=== PATIENT | female | born 1940 | race Hispanic/Latino ===

== ENCOUNTER 2018-09-12 06:26 | Emergency (ER) | payer MEDICARE, OTHER ==
[~2018-09-12] VITALS: Ht 154.9 cm; Wt 97.5 kg
[~2018-09-12 06:26] MED LIST: AMLODIPINE BESYL5 MG PO; LOSARTAN POTASS25 MG PO; METFORMIN HCL500 M2 PO; OMEPRAZOLE40 MG PO
--- OUTSIDE RECORDS SUMMARY | 2018-09-12 06:29 | XMS REPORT ---
Author Author [facility] Address Unknown Phone Unavailable Care Team Providers Care Radiological Technician Name Role Phone Clarissa MICHALE Unavailable Unavailable Problems This patient has no known problems. Allergies, Adverse Reactions, Alerts This patient has no known allergies or adverse reactions. Medications This patient has no known medications. Results Test Description Test Time Test Comments Text Results Atomic Results Result Comments CT ABDOMEN/PELVIS W [id number] [place], [place] [address] Patient Name: GUSTAVO DUMONT MR #: [id number] : 1940 Age/Sex: 76/F Req #: [id number] Adm Physician: Ordered by: JORDAN TORREZ Report #: [id number] Location: ER Room/Bed: Procedure: [id number] CT/CT ABDOMEN/PELVIS W Exam Date: 01/24/17 Exam Time: 1730 REPORT STATUS: Signed PROCEDURE: CT ABDOMEN AND PELVIS WITH CONTRAST TECHNIQUE: The abdomen and pelvis were scanned utilizing a multidetector helical scanner from the diaphragm to the lesser trochanter after the IV administration of 75 cc of Isovue 370 and the oral administration of dilute Gastrografin. Coronal and sagittal multiplanar reformations were obtained. COMPARISON: None. INDICATIONS: Right lower quadrant pain since yesterday, history of diverticulitis FINDINGS: LOWER THORAX: Linear opacities in the lingula and anterior left lower lobe, likely represent subsegmental atelectasis or scarring. The lung bases are otherwise clear. HEPATOBILIARY: No focal hepatic lesions. No intrahepatic biliary ductal dilatation. The common bile duct is mildly dilated, measuring 8 mm at the clemente hepatis. Cholecystectomy clips. SPLEEN: No splenomegaly. PANCREAS: No ductal dilation. 1.1 x 0.9 x 1.3 cm fat containing lesion in the pancreatic head, likely representing a lipoma. No other focal lesions. ADRENALS: 1.0 cm hypodense nodule in the left adrenal gland (coronal image 64). Right adrenal gland is unremarkable. KIDNEYS/URETERS: No hydronephrosis, stones, or solid mass lesions. Cortical scarring in the left kidney PELVIC ORGANS/BLADDER: Bladder is unremarkable. Uterus is unremarkable. No adnexal masses. PERITONEUM / RETROPERITONEUM: No free air or fluid. LYMPH NODES: No lymphadenopathy. VESSELS: Unremarkable. GI TRACT: No bowel dilation or evidence of obstruction. No pericolonic inflammatory changes. Surgical sutures are noted in the sigmoid colon (series 2, image 64). No significant diverticulosis or diverticulitis. BONES AND SOFT TISSUES: No acute bony abnormalities. Degenerative disc changes in the lower lumbosacral spine, wors e at L4-L5. Marked diastases of the recti muscles, with the herniation of mesentery, small and large bowel, which has a normal nondilated, nonobstructive appearance. IMPRESSION: 1. No acute abdominopelvic abnormalities. Specifically, no acute abnormal findings in the right lower quadrant to explain the patient's pain. 2. Marked diastases of the recti muscles, with herniation of mesentery, small and large bowel, which has a normal nondilated, nonobstructive appearance. 3. Indeterminate 1.0 cm hypodense nodule in the left adrenal gland, likely representing a benign adenoma. 4. 1.1 cm lipoma in the pancreatic head. 5. Mild dilation of the common bile duct, likely reflecting post cholecystectomy status. Boaz Ring M.D. Dictated by: Boaz Ring M.D. on 01/24/2017 at 18:22 Electronically approved by: Boaz Ring M.D. on 01/24/2017 at 18:22 Dictated By: BOAZ RING MD 21 Transcribed By: JERI on 01/24/171821 COPY TO: JORDAN TORREZ
[2018-09-12] MEDS ORDERED: SODIUM CHLORIDE 0.9% 500ML 500 ML IV STA (06:50)
[2018-09-12] MEDS ORDERED: DIATRIZOATE MEGL/DIATRIZOA SOD 30 ML BTL PO ONE (06:59)
[2018-09-12] MEDS ORDERED: FAMOTIDINE 20 MG/2 ML VIAL IV NR (07:00)
[2018-09-12] MEDS ORDERED: ONDANSETRON HCL INJ 2MG/ML 2ML 2 MG/ML VIAL IV NR ×2 (07:00→09:30)
[2018-09-12 07:15] LABS: BASOPHILS % 0.3 % (0.0-1.0); EOSINOPHILS # (AUTO) 0.1 (0.0-0.4); EOSINOPHILS % 0.5 % (0.0-6.0); HEMATOCRIT 37.4 % (34.2-44.1); HEMOGLOBIN 12.6 g/dL (12.0-16.0); LYMPHOCYTES # (AUTO) 1.7 (1.0-3.2); MEAN CORPUSCULAR HEMOGLOBIN 29.4 pg (28-32); MEAN CORPUSCULAR HGB CONC 33.7 g/dL (31-35); MEAN CORPUSCULAR VOLUME 87.4 fL (81-99); MONOCYTES # (AUTO) 0.6 (0.2-0.8); MONOCYTES % 6.1 % (4.4-11.3); NEUTROPHILS # (AUTO) 7.4 (2.1-6.9); NEUTROPHILS % 75.7 % (38.7-80.0); PLATELET COUNT 241 x10e3/uL (140-360); RED BLOOD COUNT 4.28 x10e6/uL (3.6-5.1); RED CELL DISTRIBUTION WIDTH 13.9 % (11.7-14.4)
[2018-09-12 07:29] LABS: ALANINE AMINOTRANSFERASE 19 IU/L (0-55); ALBUMIN 3.8 g/dL (3.5-5.0); ALKALINE PHOSPHATASE 68 IU/L (40-150); AMYLASE 68 U/L (25-125); ANION GAP 13.1 mmol/L (8-16); BLOOD UREA NITROGEN 11 mg/dL (7-26); BUN/CREATININE RATIO 13 (6-25); CALCIUM 10.1 mg/dL (8.4-10.2); CARBON DIOXIDE 27 mmol/L (22-29); CHLORIDE 105 mmol/L (98-107); CREATINE KINASE 41 IU/L (29-168); CREATININE, SERUM 0.85 mg/dL (0.57-1.11); EST GLOMERULAR FILTRATION RATE > 60 ML/MIN (60-); GLUCOSE 151 mg/dL (74-118); POTASSIUM 4.1 mmol/L (3.5-5.1); SODIUM 141 mmol/L (136-145)
[2018-09-12 08:02] LABS: CLARITY,URINE SL CLOUDY (CLEAR); COLOR,URINE YELLOW (YELLOW); KETONES,URINE NEGATIVE (NEGATIVE); LEUKOCYTE ESTERASE ,URINE NEGATIVE (NEGATIVE); NITRITE,URINE NEGATIVE (NEGATIVE); PROTEIN,URINE DIPSTICK NEGATIVE (NEGATIVE); URINE UROBILINOGEN 0.2 mg/dL (0.2 - 1)
[2018-09-12 08:03] LABS: BILIRUBIN,URINE NEGATIVE (NEGATIVE)
[2018-09-12 08:07] LABS: BACTERIA,URINE RARE /HPF; EPITHELIAL CELLS,URINE RARE /LPF; RBC,URINE 0-5 /HPF (0-5); WBC,URINE (MAN) 0-5 /HPF (0-5)
[2018-09-12 08:57] LABS: INR 0.95; PARTIAL THROMBOPLASTIN TIME 26.4 seconds (23.8-35.5); PROTHROMBIN TIME 13.2 seconds (11.9-14.5)
--- NOTE | 2018-09-12 09:24 | NUR ---
PT OFFERED CULTURALINK TRANSLATION FOR PRYDEINIG AND DECLINED STATES SHE IS OK WITH DAUGHTER TRANSLATING
--- NOTE | 2018-09-12 09:25 | NUR ---
PT VOMITING X 2 NO BLOOD MD NOTIFIED
[2018-09-12] MEDS ORDERED: MORPHINE SULFATE INJ 4 MG/ML INJ 1ML IV NR (09:30)
--- NOTE | 2018-09-12 10:07 | Diagnostic Imaging Report ---
EXAM: CT ABDOMEN AND PELVIS with IV CONTRAST DATE: 09/12/2018 Time stamp on Exam: 8:59 AM INDICATION: Abdominal pain COMPARISON: None TECHNIQUE: The abdomen and pelvis were scanned using a multidetector helical scanner. Coronal and sagittal reformations were obtained. Routine protocol performed. Technique modification was utilized to maintain the lowest dose possible to the patient. IV Contrast: 100 cc of Isovue-370 Oral Contrast: Gastrografin intermixed with water Radiation Dose: Total DLP 664.83 mGy*cm Estimated effective dose: DLP x 0.015 x size factor FINDINGS: LOWER THORAX: No consolidations with minimal lingular atelectasis. LIVER: No masses with mild hepatic steatosis. BILIARY: The gallbladder is absent. Mild intrahepatic and extrahepatic ductal prominence secondary to reservoir effect. SPLEEN: No masses PANCREAS: No masses ADRENALS: There is a 1.4 cm left adrenal nodule. KIDNEYS: Symmetric perfusion. No enhancing masses. No hydronephrosis. Left renal hypodensity is too small to characterize but likely a cyst. GI TRACT: No distention, wall thickening or evidence of obstruction. VESSELS: Unremarkable PERITONEUM/RETROPERITONEUM: No free air or fluid. There is a large lower abdominal wall ventral hernia with loops of bowel present. The loops of bowel present within the hernia sac are mildly dilated with small bowel loops measuring up to 4 cm. LYMPH NODES: No lymphadenopathy REPRODUCTIVE ORGANS: Unremarkable BLADDER: Unremarkable SOFT TISSUES: Unremarkable BONES: No suspicious bone lesions with degenerative changes most pronounced at L4-L5 with endplate sclerosis and disc space narrowing. IMPRESSION: 1. Large lower abdominal wall ventral hernia with dilated loops of small bowel within it. 2. Nonspecific left adrenal nodule would require further workup for characterization. Signed by: Dr. Carlito oFreman DO on 09/12/2018 10:04 AM
[2018-09-12] MEDS ORDERED: IOPAMIDOL 370 MG/ML 200 ML INFUS..BTL INJ ONE (10:20)
[2018-09-12] MEDS ORDERED: SODIUM CHLORIDE 0.9% 50ML 50 ML ONE (10:20)
[2018-09-12 10:30] VITALS: BP 144/94
== END 2018-09-12 10:53 | disposition home or self-care (01) ==
LOC: ER 06:26
DX: R10.32 Left lower quadrant pain (principal); R10.31 Right lower quadrant pain; R11.2 Nausea with vomiting, unspecified; K43.9 Ventral hernia without obstruction or gangrene; E11.65 Type 2 diabetes mellitus with hyperglycemia; I10 Essential (primary) hypertension; E78.5 Hyperlipidemia, unspecified
CPT/HCPCS: 36415; 74177; 80053; 81001; 82150; 82550; 82553; 83605; 83880; 84484; 85025; 85610; 85730; 87086; 99284; J2270; J2405; J7040; Q9967

== ENCOUNTER 2018-09-13 01:14 | Inpatient (IN) | payer OTHER ==
[~2018-09-13] VITALS: Ht 165.1 cm; Wt 91.6 kg
[2018-09-13 01:51] LABS: BASOPHILS % 0.2 % (0.0-1.0); EOSINOPHILS % 0.1 % (0.0-6.0); HEMATOCRIT 36.7 % (34.2-44.1); HEMOGLOBIN 12.5 g/dL (12.0-16.0); LYMPHOCYTES % 20.7 % (18.0-39.1); MEAN CORPUSCULAR HEMOGLOBIN 29.2 pg (28-32); MEAN CORPUSCULAR HGB CONC 34.1 g/dL (31-35); MEAN CORPUSCULAR VOLUME 85.7 fL (81-99); MONOCYTES # (AUTO) 0.7 (0.2-0.8); MONOCYTES % 7.6 % (4.4-11.3); NEUTROPHILS # (AUTO) 6.8 (2.1-6.9); PLATELET COUNT 251 x10e3/uL (140-360); RED BLOOD COUNT 4.28 x10e6/uL (3.6-5.1)
--- NOTE | 2018-09-13 02:09 | Diagnostic Imaging Report ---
Exam: Abdominal series with PA chest. Clinical History: Abdominal pain and vomiting for 2 days Comparison: CT abdomen and pelvis 09/12/2018 performed yesterday DISCUSSION: Frontal view of the abdomen shows centrally located mildly dilated small bowel loops measuring 3.9 cm in maximum diameter, likely located in the previously visualized lower abdominal wall ventral hernia. There are no abnormal calcifications.No acute bone abnormality. Lungs are grossly clear. No consolidation or effusion. Cardiomediastinal silhouette is normal. Pulmonary vasculature is normal. No acute bony abnormalities. Stable atelectatic changes in the lingula. Lungs are otherwise clear. No consolidation or effusion. Cardiac mediastinal silhouette is unremarkable. Pulmonary vasculature is normal. No acute bony abnormalities. IMPRESSION: 1. Mildly dilated small bowel loops likely located in the previously visualized lower abdominal wall ventral hernia. The appearance is unchanged since CT performed yesterday. The staff physician below has personally reviewed this exam on the date of dictation. Signed by: Dr. Alberto Ring M.D. on 09/13/2018 2:05 AM
[2018-09-13 02:13] LABS: CLARITY,URINE CLOUDY (CLEAR); COLOR,URINE YELLOW (YELLOW); LEUKOCYTE ESTERASE ,URINE NEGATIVE (NEGATIVE); NITRITE,URINE NEGATIVE (NEGATIVE); PROTEIN,URINE DIPSTICK TRACE (NEGATIVE)
[2018-09-13 02:14] LABS: ALANINE AMINOTRANSFERASE 15 IU/L (0-55); ALBUMIN 3.6 g/dL (3.5-5.0); ALKALINE PHOSPHATASE 59 IU/L (40-150); AMYLASE 55 U/L (25-125); ANION GAP 15.8 mmol/L (8-16); BACTERIA,URINE MANY /HPF; BILIRUBIN,URINE 1+ (NEGATIVE); BLOOD UREA NITROGEN 11 mg/dL (7-26); BUN/CREATININE RATIO 13 (6-25); CALCIUM 9.6 mg/dL (8.4-10.2); CARBON DIOXIDE 23 mmol/L (22-29); CHLORIDE 103 mmol/L (98-107); CREATINE KINASE 45 IU/L (29-168); CREATININE, SERUM 0.86 mg/dL (0.57-1.11); EPITHELIAL CELLS,URINE MODERATE /LPF; EST GLOMERULAR FILTRATION RATE > 60 ML/MIN (60-); GLUCOSE 134 mg/dL (74-118); KETONES,URINE 1+ (NEGATIVE); LIPASE 12 U/L (8-78); MUCUS,URINE FEW (RARE); POTASSIUM 3.8 mmol/L (3.5-5.1); SODIUM 138 mmol/L (136-145); URINE UROBILINOGEN 1 mg/dL (0.2 - 1)
[2018-09-13] MEDS ORDERED: ONDANSETRON HCL INJ 2MG/ML 2ML 2 MG/ML VIAL IV STA (02:23)
[2018-09-13] MEDS ORDERED: BENZOCAINE/TETRACAINE/BUTAMBEN AERO SPRAY 56 GM CAN TOP ONE (02:45)
[2018-09-13] MEDS ORDERED: ONDANSETRON HCL INJ 2MG/ML 2ML 2 MG/ML VIAL IV PRN (02:45)
[2018-09-13] MEDS ORDERED: DEXTROSE 50% SYRINGE 50 ML IV PRN (02:45)
[2018-09-13] MEDS ORDERED: HYDRALAZINE HCL 20 MG/ML VIAL IV PRN (02:45)
[2018-09-13] MEDS: SODIUM CHLORIDE 0.9% 1000ML 1,000 ML IV SCH ×3 (03:30→21:42)
[2018-09-13] MEDS: PIPER-TAZ 3.375 GM 50 ML IV SCH ×4 (03:30→21:42)
--- NOTE | 2018-09-13 07:00 | NUR ---
ASSUMED CARE Addendum: 09/13/18 at 0743 by AMCCAULE ASSUMED CARE AT THIS TIME. PATIENT AWAKE AND ALERT SITTING IN BED. RESP EVEN AND UNLABORED. SKIN WARM AND DRY. NO SIGNS OF ACUTE DISTRESS NOTED AT THIS TIME. REQUESTING PAIN MEDICATION. EDUCATED PAITENT AND FAMILY ON THE CURRENT PLAN OF CARE,VERBALIZED UNDERSTANDING.
[2018-09-13] MEDS: MORPHINE SULFATE INJ 4 MG/ML INJ 1ML IV PRN ×2 (07:25→18:48)
[2018-09-13] MEDS: INSULIN REGULAR, HUMAN 100 UNIT/1 ML 3ML VIAL SQ SCH ×4 (07:39→21:00)
--- NOTE | 2018-09-13 09:00 | NUR ---
VERBAL REPORT GIVEN TO JAMSHID TOLBERT
--- NOTE | 2018-09-13 10:02 | NUR ---
DR VARGAS AT BEDSIDE FOR PATIENT EVAL
[2018-09-13] MEDS ORDERED: ACETAMINOPHEN 325 MG TAB PO PRN (12:30)
[2018-09-13] MEDS ORDERED: ACETAMINOPHEN 1000 MG/100 ML IV PRN (12:30)
--- NOTE | 2018-09-13 12:43 | NUR ---
no incarerated hernia per dr nicolas; continue routine care per md; pt on ngt to lwsx intermittant with approx 500 cc greenish dark fluid emptied in canister. pt aaox4. translated by fm which pt states she prefers for translation of northern irish to tuvaluan. pt assisted to restroom. back to room and on monitoring and sx. family with pt and in modified high fowlers for comfort. vss. ivf's running on pump 125cc/hr. no s/s infiltration noted to iv site. updated plan of care. continue to monitor pt while waiting for room assginment.
[2018-09-13 13:35] VITALS: BP 144/64
[2018-09-13 15:10] VITALS: BP 144/64
--- NOTE | 2018-09-13 15:10 | NUR ---
Received pt from ER at this time. Pt is aox4 and able to verbalize but only in hungarian. Daughter at the bedside and able to translate for her. Pt was admitted to nausea and abdominal pain. She has ngtube to right nare connected to LIWS at this time. Minimal greenish drainage noted. Pt is able to ambulate with min assist. Denies any pain at this time. Pt is NPO and on IVF NS@125ml/hr and well tolerated. Skin is intact. Pt place don alternating mattress and SCDs placed to bilateral legs.
[2018-09-13] MEDS: FAMOTIDINE 20 MG/2 ML VIAL IV SCH (18:42)
[2018-09-13 20:00] VITALS: BP 124/59
--- NOTE | 2018-09-13 22:21 | NUR ---
minimal output noted to NGT, "whoosh" test performed, NGT placement verified.
--- NOTE | 2018-09-13 22:26 | Consultation ---
DATE OF CONSULTATION: 09/13/2018 CHIEF COMPLAINT: Abdominal pain and vomiting. HISTORY: The patient is a 78-year-old female with 3-day history of lower abdominal pain with associated nausea and vomiting several times without hematemesis. The patient has denied diarrhea. PAST MEDICAL HISTORY: Positive for hypertension, diabetes, and reflux. PAST SURGICAL HISTORY: Multiple abdominal surgery after perforated diverticulitis with colostomy. ALLERGIES: THE PATIENT HAS NO KNOWN DRUG ALLERGIES. SOCIAL HABITS: She denies smoking or alcohol abuse. REVIEW OF SYSTEMS: No chest pain or shortness of breath or cough. PHYSICAL EXAMINATION: VITAL SIGNS: Stable, afebrile. GENERAL: The patient is awake, alert, in mild to moderate discomfort. HEENT: Sclerae anicteric. NG tube is in place. NECK: Supple. LUNGS: Clear. HEART: Regular rate and rhythm. ABDOMEN: Mildly distended with some guarding in the periumbilical lower abdominal area without any guarding or rebound. EXTREMITIES: Without cyanosis or edema. LABORATORY DATA: White cell count 9, hemoglobin of 12. Creatinine of 0.8. CT of the abdomen has shown a dilated loop of small bowel and a chronically incisional hernia with a large wide hernia defect. ASSESSMENT: Small bowel obstruction likely secondary to adhesions in a patient with known incisional hernia. PLAN: NG tube decompression. Expecting spontaneous resolution of adhesion related bowel obstruction. No plan for hernia repair in this acute setting of bowel obstruction. Joshua Agustin MD DNPapa/MODL /[id number]
[2018-09-13 22:30] VITALS: BP 124/59
[2018-09-14] VITALS (8 sets, daily range): BP systolic 127–171; BP diastolic 61–74
[2018-09-14 03:10] LABS: BASOPHILS % 0.5 % (0.0-1.0); EOSINOPHILS # (AUTO) 0.1 (0.0-0.4); EOSINOPHILS % 1.3 % (0.0-6.0); HEMATOCRIT 35.2 % (34.2-44.1); HEMOGLOBIN 11.4 g/dL (12.0-16.0); LYMPHOCYTES # (AUTO) 2.1 (1.0-3.2); LYMPHOCYTES % 34.2 % (18.0-39.1); MEAN CORPUSCULAR HEMOGLOBIN 28.9 pg (28-32); MEAN CORPUSCULAR HGB CONC 32.4 g/dL (31-35); MONOCYTES # (AUTO) 0.6 (0.2-0.8); NEUTROPHILS # (AUTO) 3.4 (2.1-6.9); NEUTROPHILS % 54.5 % (38.7-80.0); PLATELET COUNT 197 x10e3/uL (140-360); RED BLOOD COUNT 3.95 x10e6/uL (3.6-5.1); RED CELL DISTRIBUTION WIDTH 14.1 % (11.7-14.4)
[2018-09-14 03:27] LABS: MEAN CORPUSCULAR VOLUME 89.1 fL (81-99)
[2018-09-14 03:34] LABS: ALANINE AMINOTRANSFERASE 12 IU/L (0-55); ALBUMIN 3.1 g/dL (3.5-5.0); ALKALINE PHOSPHATASE 52 IU/L (40-150); AMYLASE 41 U/L (25-125); ANION GAP 11.4 mmol/L (8-16); BLOOD UREA NITROGEN 10 mg/dL (7-26); BUN/CREATININE RATIO 12 (6-25); CALCIUM 8.4 mg/dL (8.4-10.2); CARBON DIOXIDE 22 mmol/L (22-29); CHLORIDE 108 mmol/L (98-107); CREATININE, SERUM 0.84 mg/dL (0.57-1.11); EST GLOMERULAR FILTRATION RATE > 60 ML/MIN (60-); GLUCOSE 97 mg/dL (74-118); LIPASE 9 U/L (8-78); POTASSIUM 3.4 mmol/L (3.5-5.1); SODIUM 138 mmol/L (136-145)
--- NOTE | 2018-09-14 04:20 | NUR ---
patient ambulated hallway with daughter. returned to bed, and ngt to suction. patient c/o abd pain 08/08, refusing pain medication at this time. bed locked and in lowest position, call light within easy reach. will continue to monitor the patient.
[2018-09-14] MEDS: PIPER-TAZ 3.375 GM 50 ML IV SCH ×3 (06:05→21:36)
--- NOTE | 2018-09-14 06:29 | Diagnostic Imaging Report ---
Exam: Abdominal film Clinical History: Small bowel obstruction Comparison: KUB 09/13/2018 DISCUSSION: Frontal view of the abdomen shows contrast in the colon from prior CT abdomen and pelvis. Centrally located mildly dilated loops of small bowel are again noted in the lower abdomen/upper pelvis, with maximal measurement of 4.2 cm. Enteric tube distal tip projects in the stomach fundus. No acute bone abnormality. IMPRESSION: 1. Mild small bowel dilation consistent with known obstruction secondary to ventral hernia The staff physician below has personally reviewed this exam on the date of dictation. Signed by: Dr. Alberto Ring M.D. on 09/14/2018 6:25 AM
[2018-09-14] MEDS: SODIUM CHLORIDE 0.9% 1000ML 1,000 ML IV SCH ×2 (07:20→15:07)
[2018-09-14] MEDS: FAMOTIDINE 20 MG/2 ML VIAL IV SCH ×2 (07:30→16:30)
[2018-09-14] MEDS: INSULIN REGULAR, HUMAN 100 UNIT/1 ML 3ML VIAL SQ SCH ×4 (07:30→21:00)
--- NOTE | 2018-09-14 07:40 | NUR ---
PATIENT ASSISTED TO THE RESTROOM AND BACK TO BED. NG TUBE IN PLACE DRAINING GREENISH FLUID. BED IN LOWER POSITION, CALL LIGHT AT REACH. FAMILY AT BED SIDE.
[2018-09-14] MEDS ORDERED: POTASSIUM CHLORIDE 20MEQ/100ML 100 ML IV ONE (08:45)
--- NOTE | 2018-09-14 11:20 | NUR ---
SPOKE WITH DR RAYMOND'S PROJECTION CAMERA OPERATOR REGARDING ABNORMAL LAB RESULT, NEW ORDER RECEIVED AND IMPLEMENTED.
--- NOTE | 2018-09-14 15:49 | NUR ---
PATIENT AMBULATED IN HALLWAY WITH FAMILY MEMBER, NO COMPLAIN VOICED. BACK IN BED, NG TUBE CONNECTED. BED IN LOWER POSITION, CALL LIGHT AT REACH. INSTRUCTED TO CALL FOR ASSISTANCE NEEDED.
[2018-09-14] MEDS: SOD CHL 0.45%/POT CHL 20MEQ 1,000 ML IV SCH (17:53)
[2018-09-14] MEDS ORDERED: BENZOCAINE 20% SPR 60 ML CAN MT PRN (18:30)
--- NOTE | 2018-09-14 21:37 | Consultation ---
DATE OF CONSULTATION: Pulmonary Critical Care Consultation CHIEF COMPLAINT: Abdominal distention and pain. HISTORY OF PRESENT ILLNESS: The patient is a 78-year-old woman. She has a history of hypertension and prior bowel obstruction. She came in complaining of cramping abdominal pain. She noted nausea and vomiting. She denied any fevers. After arriving in the ER, she had abdominal series that showed possible obstruction. She was seen in consultation by General Surgery, who suspected partial obstruction. She was placed on NG tube with suction along with fluids and antibiotics and she feels better. PAST SURGICAL HISTORY: 1. Status post colon resection with colostomy. 2. Status post reversal colostomy. 3. Status post appendectomy. 4. Status post cholecystectomy. 5. Status post hysterectomy. ALLERGIES: THE PATIENT HAS NO KNOWN DRUG ALLERGIES. SOCIAL HISTORY: The patient is not a drinker or smoker. FAMILY HISTORY: Cancer in the father's side and sister with a cerebral vascular accident. REVIEW OF SYSTEMS: The patient is afebrile. The patient has no headache. She denies any neck pain. She denies chest pain. She is not having any cough or dyspnea. She denies any nausea or vomiting, but she still has abdominal distention and bloating. She has no leg edema. PHYSICAL EXAMINATION: VITAL SIGNS: The patient is afebrile. Vital signs are stable. HEENT: Shows no facial swelling or erythema. The oropharynx is normal. LYMPHATIC: Shows no submandibular, cervical, or supraclavicular adenopathy. CARDIAC: Reveals regular rate and rhythm with normal S1, S2. There are no murmurs or rubs heard. LUNGS: Auscultation of lungs reveals clear breath sounds bilaterally. There is no wheezing. ABDOMEN: Distended, but soft. There is no rebound or guarding. EXTREMITIES: Show no leg edema or calf tenderness. There is no cyanosis or clubbing. IMAGING: X-ray showed continued small bowel obstruction. LABORATORY DATA: Blood counts are within normal limits. CBC is normal. IMPRESSION: 1. Partial small bowel obstruction. 2. Hypertension. 3. Urinary tract infection. PLAN: 1. Continue IV fluids. 2. Continue NG tube to intermittent suction. 3. Re-evaluation by General Surgery. 4. Continue current antibiotics. 5. Case discussed with the patient, daughter, and Marci Natarajan NP. MD REED [place]/RIP /[id number]
[2018-09-15] VITALS (8 sets, daily range): BP systolic 120–164; BP diastolic 56–75
[2018-09-15 03:06] LABS: BASOPHILS % 0.4 % (0.0-1.0); EOSINOPHILS # (AUTO) 0.1 (0.0-0.4); EOSINOPHILS % 1.1 % (0.0-6.0); HEMATOCRIT 35.8 % (34.2-44.1); HEMOGLOBIN 12.1 g/dL (12.0-16.0); LYMPHOCYTES # (AUTO) 2.2 (1.0-3.2); LYMPHOCYTES % 31.3 % (18.0-39.1); MEAN CORPUSCULAR HEMOGLOBIN 29.4 pg (28-32); MEAN CORPUSCULAR HGB CONC 33.8 g/dL (31-35); MEAN CORPUSCULAR VOLUME 87.1 fL (81-99); MONOCYTES # (AUTO) 0.5 (0.2-0.8); MONOCYTES % 6.9 % (4.4-11.3); NEUTROPHILS # (AUTO) 4.2 (2.1-6.9); NEUTROPHILS % 59.9 % (38.7-80.0); PLATELET COUNT 213 x10e3/uL (140-360); RED BLOOD COUNT 4.11 x10e6/uL (3.6-5.1); RED CELL DISTRIBUTION WIDTH 13.9 % (11.7-14.4)
[2018-09-15] MEDS: SOD CHL 0.45%/POT CHL 20MEQ 1,000 ML IV SCH ×3 (03:21→20:48)
[2018-09-15 03:32] LABS: ANION GAP 14.6 mmol/L (8-16); BLOOD UREA NITROGEN 9 mg/dL (7-26); BUN/CREATININE RATIO 11 (6-25); CARBON DIOXIDE 20 mmol/L (22-29); CHLORIDE 108 mmol/L (98-107); CREATININE, SERUM 0.84 mg/dL (0.57-1.11); EST GLOMERULAR FILTRATION RATE > 60 ML/MIN (60-); GLUCOSE 74 mg/dL (74-118); POTASSIUM 3.6 mmol/L (3.5-5.1); SODIUM 139 mmol/L (136-145)
--- NOTE | 2018-09-15 06:06 | Diagnostic Imaging Report ---
Exam: Abdominal film Clinical History: Small bowel obstruction Comparison: KUB 09/14/2018 DISCUSSION: See impression. IMPRESSION: 1. Enteric tube has distal tip projecting in the region of the stomach body. 2. Contrast is again noted in the colon. No dilated, air-filled loops of bowel are identified. 3. No acute bony abnormalities. The staff physician below has personally reviewed this exam on the date of dictation. Signed by: Dr. Alberto Ring M.D. on 09/15/2018 6:03 AM
[2018-09-15] MEDS: PIPER-TAZ 3.375 GM 50 ML IV SCH ×3 (06:18→21:20)
--- NOTE | 2018-09-15 07:20 | NUR ---
PATIENT IN BED RESTING WITH HEAD OF BED ELEVATED, NO DISTRESS NOTED. NG TUBE IN PLACE DRAINING GREENISH FLUID. BED IN LOWER POSITION, CALL LIGHT AT REACH.
[2018-09-15] MEDS: INSULIN REGULAR, HUMAN 100 UNIT/1 ML 3ML VIAL SQ SCH ×4 (07:30→19:57)
[2018-09-15] MEDS: FAMOTIDINE 20 MG/2 ML VIAL IV SCH ×2 (07:55→16:51)
--- NOTE | 2018-09-15 11:30 | NUR ---
MD IN TO SEE PATIENT, NEW ORDER RECEIVED TO D/C NG TUBE. NG TUBE D/C ORDERED, PATIENT TOLERATED PROCEDURE WELL. OUT OF BED TO CHAIR. CALL LIGHT AT REACH.
[2018-09-15] MEDS: LOSARTAN POTASSIUM 25 MG TAB PO SCH (12:30)
[2018-09-15] MEDS: AMLODIPINE BESYLATE 5 MG TAB PO SCH (12:30)
--- NOTE | 2018-09-15 19:05 | NUR ---
received patient aaox3 sitting in chair, family members in room. stable condition, no distress observed. call light within reach.
--- NOTE | 2018-09-15 19:22 | NUR ---
patient ambulating hallway, gait steady.
--- NOTE | 2018-09-15 23:37 | NUR ---
right FA 20g IV infiltrated, removed with catheter tip intact. charge started 22g left FA IV, x1 attempt. patient tolerated well. IV fluids resumed.
[2018-09-16] VITALS (8 sets, daily range): BP systolic 130–176; BP diastolic 61–74
[2018-09-16 04:06] LABS: BASOPHILS % 0.4 % (0.0-1.0); EOSINOPHILS # (AUTO) 0.1 (0.0-0.4); HEMATOCRIT 31.5 % (34.2-44.1); HEMOGLOBIN 10.7 g/dL (12.0-16.0); LYMPHOCYTES # (AUTO) 1.6 (1.0-3.2); LYMPHOCYTES % 28.5 % (18.0-39.1); MEAN CORPUSCULAR HEMOGLOBIN 29.3 pg (28-32); MEAN CORPUSCULAR VOLUME 86.3 fL (81-99); MONOCYTES # (AUTO) 0.5 (0.2-0.8); MONOCYTES % 8.5 % (4.4-11.3); NEUTROPHILS # (AUTO) 3.3 (2.1-6.9); NEUTROPHILS % 60.2 % (38.7-80.0); PLATELET COUNT 204 x10e3/uL (140-360); RED BLOOD COUNT 3.65 x10e6/uL (3.6-5.1); RED CELL DISTRIBUTION WIDTH 14.1 % (11.7-14.4)
[2018-09-16 04:33] LABS: ANION GAP 12.7 mmol/L (8-16); BLOOD UREA NITROGEN 8 mg/dL (7-26); BUN/CREATININE RATIO 9 (6-25); CALCIUM 9.1 mg/dL (8.4-10.2); CARBON DIOXIDE 20 mmol/L (22-29); CHLORIDE 112 mmol/L (98-107); CREATININE, SERUM 0.86 mg/dL (0.57-1.11); EST GLOMERULAR FILTRATION RATE > 60 ML/MIN (60-); GLUCOSE 94 mg/dL (74-118); MAGNESIUM 2.1 MG/DL (1.3-2.1); POTASSIUM 3.7 mmol/L (3.5-5.1); SODIUM 141 mmol/L (136-145)
[2018-09-16] MEDS: PIPER-TAZ 3.375 GM 50 ML IV SCH ×3 (06:17→21:23)
[2018-09-16] MEDS: INSULIN REGULAR, HUMAN 100 UNIT/1 ML 3ML VIAL SQ SCH ×4 (07:30→20:22)
--- NOTE | 2018-09-16 07:30 | NUR ---
PATIENT IN BED RESTING WITH EYES CLOSED, NO RESPIRATORY DISTRESS OBSERVED. IV FLUID INFUSING ORDERED. BED IN LOWER POSITION, CALL LIGHT AT REACH.
[2018-09-16] MEDS: FAMOTIDINE 20 MG/2 ML VIAL IV SCH ×2 (07:41→16:30)
[2018-09-16] MEDS: LOSARTAN POTASSIUM 25 MG TAB PO SCH (09:11)
[2018-09-16] MEDS: AMLODIPINE BESYLATE 5 MG TAB PO SCH (09:11)
--- NOTE | 2018-09-16 11:14 | NUR ---
PATIENT AMBULATING IN HALLWAY WITH FAMILY MEMBER, NO COMPLAIN VOICED. WILL CLOSELY MONITOR.
--- NOTE | 2018-09-16 11:44 | NUR ---
PATIENT NOTED WITH B/P OF 176/74. PRN HYDRALAZINE OFFERED, PATIENT REFUSED STATING I WAS ON THE PHONE ANGRY. B/P RECHECKED WITH THE READING OF 141/65.
--- NOTE | 2018-09-16 15:08 | NUR ---
PATIENT OUT OF BED TO CHAIR TALKING TO FAMILY MEMBERS VISITING. CALL LIGHT AT REACH.
--- NOTE | 2018-09-16 19:16 | NUR ---
PT IS SITTING ON THE COUCH WITH FAMILY IN THE ROOM. NO RESPIRATORY DISTRESS NOTED. BED IN THE LOWEST POSITION, LOCKED, AND CALL LIGHT WITHIN REACH. WILL CONTINUE TO MONITOR.
[2018-09-16] MEDS: SOD CHL 0.45%/POT CHL 20MEQ 1,000 ML IV SCH (19:45)
[2018-09-17 00:47] VITALS: BP 153/77
[2018-09-17 03:45] LABS: BASOPHILS % 0.7 % (0.0-1.0); EOSINOPHILS # (AUTO) 0.1 (0.0-0.4); EOSINOPHILS % 2.6 % (0.0-6.0); HEMATOCRIT 33.5 % (34.2-44.1); HEMOGLOBIN 10.9 g/dL (12.0-16.0); LYMPHOCYTES # (AUTO) 1.6 (1.0-3.2); LYMPHOCYTES % 35.7 % (18.0-39.1); MEAN CORPUSCULAR HEMOGLOBIN 28.7 pg (28-32); MEAN CORPUSCULAR HGB CONC 32.5 g/dL (31-35); MEAN CORPUSCULAR VOLUME 88.2 fL (81-99); MONOCYTES # (AUTO) 0.4 (0.2-0.8); MONOCYTES % 9.4 % (4.4-11.3); NEUTROPHILS # (AUTO) 2.3 (2.1-6.9); NEUTROPHILS % 51.2 % (38.7-80.0); PLATELET COUNT 200 x10e3/uL (140-360); RED CELL DISTRIBUTION WIDTH 14.3 % (11.7-14.4)
[2018-09-17 04:02] LABS: ANION GAP 11.5 mmol/L (8-16); CREATININE, SERUM 0.91 mg/dL (0.57-1.11); POTASSIUM 3.5 mmol/L (3.5-5.1)
[2018-09-17 04:48] VITALS: BP 134/68
[2018-09-17] MEDS: PIPER-TAZ 3.375 GM 50 ML IV SCH ×2 (05:36→13:45)
[2018-09-17] MEDS: INSULIN REGULAR, HUMAN 100 UNIT/1 ML 3ML VIAL SQ SCH ×2 (07:30→11:30)
--- NOTE | 2018-09-17 07:30 | NUR ---
Bedside rounding completed with the off-going nurse and the pt. is in stable condition with side rails elevated times 2 an the bed alarm engaged. There is a family member at the bedside.
[2018-09-17 07:57] VITALS: BP 122/68
[2018-09-17 08:00] VITALS: BP 122/68
[2018-09-17] MEDS: FAMOTIDINE 20 MG/2 ML VIAL IV SCH (09:24)
[2018-09-17] MEDS: AMLODIPINE BESYLATE 5 MG TAB PO SCH (09:25)
[2018-09-17] MEDS: LOSARTAN POTASSIUM 25 MG TAB PO SCH (09:25)
--- NOTE | 2018-09-17 10:58 | Diagnostic Imaging Report ---
Exam: KUB - 2 views Clinical History: Abdominal pain. Comparison: KUB 09/15/[address] abdomen/pelvis 09/12/2018. Findings: Interval removal of enteric tube. Interval clearing of previously noted bowel contrast. Mildly dilated small bowel loops in the lower abdomen/pelvis, measuring up to 3.2 cm. Air is seen within the colon. No evidence of free intraperitoneal air. Status post cholecystectomy. Surgical clips project over the left hemiabdomen. No acute osseous abnormality. Impression: Mildly dilated small bowel loops in the lower abdomen/pelvis with air seen in a nondistended colon. Findings are suggestive of partial small bowel obstruction without high-grade obstruction. Interval removal of enteric tube. Signed by: Dr. Slick Rivera MD on 09/17/2018 10:54 AM
[2018-09-17 11:46] VITALS: BP 151/63
[2018-09-17] MEDS ORDERED: ONDANSETRON HCL 4 MG ORAL DISINTEGRATING TAB PO PRN (15:15)
--- NOTE | 2018-09-17 15:44 | NUR ---
The pt. has been discharged home in stable condition post removal of iv cath and provision of discharge information and follow up instructions
[2018-09-17] MEDS ORDERED: FAMOTIDINE 20 MG TAB PO SCH (16:30)
--- NOTE | 2018-09-18 02:46 | Discharge Summary ---
ADMISSION DIAGNOSES: Incarcerated ventral abdominal wall hernia, urinary tract infection present on admission, hypertension, gastroesophageal reflux disease, and morbid obesity. DISCHARGE DIAGNOSES: Incarcerated ventral abdominal wall hernia, urinary tract infection present on admission, hypertension, gastroesophageal reflux disease, and morbid obesity. MEDICAL HISTORY: Hypertension, type 2 diabetes, GERD, and bowel obstruction. SURGICAL HISTORY: Appendectomy, cholecystectomy, hysterectomy, and colon resection with colostomy and reversal. FAMILY HISTORY: The patient's dad had cancer. The patient's sister had a stroke. SOCIAL HISTORY: Occasional alcohol use. HOSPITAL COURSE: A 78-year-old female complains of sharp cramping abdominal pain that began in the bilateral lower quadrants and radiated upward on Monday morning. She came to the ER and was sent home since there was no obstruction. After being sent home, the abdominal pain and nausea returned. She denies diarrhea, fever, or dysuria. On admission, the patient was kept n.p.o., started on IV fluids. The patient had abdominal x-ray that showed mildly dilated small bowel loops likely located in the previously visualized lower abdominal wall ventral hernia. Surgery was consulted. NG tube was placed. The patient had a repeat KUB next day that showed mild small bowel dilation consistent with noted obstruction secondary to ventral hernia. Per Surgery, there is no need for surgery. She can continue with IV fluids, NG tube, and pain control. As the pain improved, the NG tube was removed. The patient was allowed to eat. She did have multiple bowel movements prior to discharge. She will follow up with primary care in 1 to 2 weeks. She was given no new prescriptions as she was tolerating her diet and not having any pain. The patient and daughters understand discharge instructions and agreed to plan. Vital signs stable. The patient is afebrile. Dictated by Marci Natarajan NP MD GREG [place]/RIP /[id number]
== END 2018-09-17 15:39 | disposition home or self-care (01) | DRG 394 ==
LOC: ER 01:14 → ERHOLD 02:49 → MED/SURG3 15:06
PROVIDERS: ADMIT Internal Medicine; ATTEND Internal Medicine
DX: K43.6 Other and unspecified ventral hernia with obstruction, without gangrene (principal); N39.0 Urinary tract infection, site not specified; K56.51 Intestinal adhesions [bands], with partial obstruction; I10 Essential (primary) hypertension; K21.9 Gastro-esophageal reflux disease without esophagitis; E66.01 Morbid (severe) obesity due to excess calories; Z68.33 Body mass index [BMI] 33.0-33.9, adult; E87.6 Hypokalemia; E11.9 Type 2 diabetes mellitus without complications; Z90.49 Acquired absence of other specified parts of digestive tract
CPT/HCPCS: 36415; 74018; 74022; 80048; 80053; 81001; 82150; 82550; 82553; 82948; 83036; 83690; 83735; 83880; 84484; 85025; 87086; 93005; 99284; J0360; J2270; J2405; J2543; J3480; J7030

== ENCOUNTER → 2019-10-18 | Outpatient (CLI) | payer MEDICARE, OTHER ==
[~2019-10-18] MED LIST changes: +IOPAMIDOL 370 MG/ML 200 ML INFUS..BTL INJ ONE; +SODIUM CHLORIDE 0.9% 250ML 0 ML ONE; +SODIUM CHLORIDE 0.9% 500ML 500 ML ONE; +SODIUM CHLORIDE 0.9% 50ML 0 ML ONE
[2019-10-18 09:29] LABS: CREATININE, SERUM 0.94 mg/dL (0.57-1.11)
--- NOTE | 2019-10-18 13:52 | Diagnostic Imaging Report ---
EXAM: CT Abdomen WITHOUT intravenous contrast INDICATION: Left adrenal nodule COMPARISON: CT Abdomen/Pelvis of 09/12/2018 TECHNIQUE: The abdomen was scanned utilizing a multidetector helical scanner from the lung base to the iliac crest after administration of IV contrast. Coronal and sagittal reformations were obtained. Routine protocol was performed. Scan was performed during portal venous phase. IV CONTRAST: 100mL of Isovue 370 ORAL CONTRAST: None RADIATION DOSE: Total DLP: 411 mGy*cm Dose modulation, iterative reconstruction, and/or weight based adjustment of the mA/kV was utilized to reduce the radiation dose to as low as reasonably achievable. FINDINGS: LOWER THORAX: Normal. HEPATOBILIARY: No focal liver lesions. Status post cholecystectomy. SPLEEN: No splenomegaly. PANCREAS: No focal masses or ductal dilatation. ADRENALS: 1.2 cm left adrenal nodule measures low attenuation (<10HU) and is consistent with a lipid rich benign adenoma. No further follow-up imaging for this lesion is necessary. KIDNEYS/URETERS: No hydronephrosis, stones, or solid mass lesions. PERITONEUM / RETROPERITONEUM: No free air or fluid. LYMPH NODES: No lymphadenopathy. VESSELS: Mild scattered atherosclerotic arterial calcifications. GI TRACT: No distention or wall thickening. BONES AND SOFT TISSUES: Unremarkable. IMPRESSION: 1.2 cm left adrenal nodule is low in attenuation and consistent with a lipid rich benign adenoma. No further follow-up imaging is needed for this lesion. No acute findings in the abdomen. Signed by: Saeed Lamar MD on 10/18/2019 1:48 PM
== END ==
LOC: CT 08:04
PROVIDERS: ATTEND Internal Medicine
DX: E27.8 Other specified disorders of adrenal gland (principal)
CPT/HCPCS: 36415; 74150; 82565; 84520; J7040; J7050; Q9967

== ENCOUNTER 2020-02-28 14:00 | Outpatient (RCR) | payer MEDICARE, OTHER ==
[~2020-02-28 14:00] MED LIST changes: -IOPAMIDOL 370 MG/ML 200 ML INFUS..BTL INJ ONE; -SODIUM CHLORIDE 0.9% 250ML 0 ML ONE; -SODIUM CHLORIDE 0.9% 500ML 500 ML ONE; -SODIUM CHLORIDE 0.9% 50ML 0 ML ONE
== END 2020-02-29 ==
LOC: PT 14:00
PROVIDERS: ATTEND Specialist
DX: M17.11 Unilateral primary osteoarthritis, right knee (principal); M25.561 Pain in right knee; M62.81 Muscle weakness (generalized); R26.2 Difficulty in walking, not elsewhere classified

== ENCOUNTER → 2020-03-30 | Outpatient (RCR) | payer MEDICARE, OTHER | LOC: PT 03-02 13:01 | PROVIDERS: ATTEND Specialist | DX: M17.11 Unilateral primary osteoarthritis, right knee (principal); M25.561 Pain in right knee; M62.81 Muscle weakness (generalized); R26.2 Difficulty in walking, not elsewhere classified | CPT/HCPCS: 97139 ==

== ENCOUNTER 2020-04-20 13:00 | Outpatient (RCR) | payer MEDICARE, OTHER | END 2020-04-30 | LOC: PT 13:00 | PROVIDERS: ATTEND Specialist | DX: M17.11 Unilateral primary osteoarthritis, right knee (principal); M25.561 Pain in right knee; M62.81 Muscle weakness (generalized); R26.2 Difficulty in walking, not elsewhere classified ==

== ENCOUNTER 2020-05-06 12:52 | Outpatient (RCR) | payer MEDICARE, OTHER | END 2020-05-31 | LOC: PT 12:52 | PROVIDERS: ATTEND Specialist | DX: M17.11 Unilateral primary osteoarthritis, right knee (principal); M25.561 Pain in right knee; M62.81 Muscle weakness (generalized); R26.2 Difficulty in walking, not elsewhere classified ==

== ENCOUNTER 2021-01-26 14:00 | Outpatient (RCR) | payer MEDICARE, OTHER | END 2021-01-28 | LOC: PT 14:00 | PROVIDERS: ATTEND Specialist | DX: M75.101 Unspecified rotator cuff tear or rupture of right shoulder, not specified as traumatic (principal) ==

== ENCOUNTER 2021-06-25 19:11 | Inpatient (IN) | payer MEDICARE, OTHER ==
[~2021-06-25] VITALS: Ht 165.1 cm; Wt 91.6 kg
[2021-06-25] MEDS ORDERED: ONDANSETRON HCL INJ 2MG/ML 2ML 2 MG/ML VIAL IV STA (19:27)
[2021-06-25] MEDS ORDERED: Morphine 4mg Syringe 4 MG/ML INJ IV ONE (19:30)
[2021-06-25] MEDS ORDERED: SODIUM CHLORIDE 0.9% 1000ML 1,000 ML IV ONE (19:30)
[2021-06-25 19:40] LABS: BASOPHILS % 0.3 % (0.0-1.0); EOSINOPHILS % 0.2 % (0.0-6.0); HEMATOCRIT 38.3 % (34.2-44.1); HEMOGLOBIN 12.9 g/dL (12.0-16.0); LYMPHOCYTES # (AUTO) 1.5 (1.0-3.2); LYMPHOCYTES % 12.6 % (18.0-39.1); MEAN CORPUSCULAR HEMOGLOBIN 30.2 pg (28-32); MEAN CORPUSCULAR HGB CONC 33.7 g/dL (31-35); MEAN CORPUSCULAR VOLUME 89.7 fL (81-99); MONOCYTES # (AUTO) 0.8 (0.2-0.8); MONOCYTES % 6.3 % (4.4-11.3); NEUTROPHILS # (AUTO) 9.7 (2.1-6.9); NEUTROPHILS % 80.2 % (38.7-80.0); PLATELET COUNT 274 x10e3/uL (140-360); RED BLOOD COUNT 4.27 x10e6/uL (3.6-5.1); RED CELL DISTRIBUTION WIDTH 13.2 % (11.7-14.4)
[2021-06-25 19:45] LABS: INR 0.89; PROTHROMBIN TIME 12.9 seconds (11.9-14.5)
[2021-06-25 19:46] LABS: PARTIAL THROMBOPLASTIN TIME 25.7 seconds (23.8-35.5)
[2021-06-25] MEDS ORDERED: SODIUM CHLORIDE 0.9% 1000ML 1,000 ML ONE (19:48)
[2021-06-25] MEDS ORDERED: DIATRIZOATE MEGL/DIATRIZOA SOD 30 ML BTL PO ONE (19:55)
[2021-06-25 19:56] LABS: ALANINE AMINOTRANSFERASE 14 IU/L (0-55); ALBUMIN 4.1 g/dL (3.5-5.0); ALBUMIN/GLOBULIN RATIO 1.1 (0.8-2.0); ALKALINE PHOSPHATASE 59 IU/L (40-150); ANION GAP 15.3 mmol/L (8-16); BLOOD UREA NITROGEN 14 mg/dL (7-26); BUN/CREATININE RATIO 15 (6-25); CALCIUM 10.1 mg/dL (8.4-10.2); CARBON DIOXIDE 26 mmol/L (22-29); CHLORIDE 105 mmol/L (98-107); CREATINE KINASE 42 IU/L (29-168); CREATININE, SERUM 0.94 mg/dL (0.57-1.11); EST GLOMERULAR FILTRATION RATE 57 ML/MIN (60-); GLUCOSE 176 mg/dL (74-118); POTASSIUM 4.3 mmol/L (3.5-5.1); SODIUM 142 mmol/L (136-145)
[2021-06-25 20:19] LABS: AMYLASE 64 U/L (25-125); LIPASE 27 U/L (8-78)
[2021-06-25 20:22] LABS: CLARITY,URINE CLEAR (CLEAR); COLOR,URINE YELLOW (YELLOW); KETONES,URINE 2+ (NEGATIVE); LEUKOCYTE ESTERASE ,URINE NEGATIVE (NEGATIVE); NITRITE,URINE NEGATIVE (NEGATIVE); PROTEIN,URINE DIPSTICK NEGATIVE (NEGATIVE); URINE UROBILINOGEN 1 mg/dL (0.2 - 1)
[2021-06-25 20:25] LABS: BACTERIA,URINE MODERATE /HPF; EPITHELIAL CELLS,URINE MODERATE /LPF
[2021-06-25] MEDS ORDERED: IOPAMIDOL 370 MG/ML 200 ML INFUS..BTL INJ ONE (21:06)
[2021-06-25] MEDS ORDERED: SODIUM CHLORIDE 0.9% 50ML 50 ML ONE (21:06)
[2021-06-25] MEDS ORDERED: DEXTROSE 50% SYRINGE 50 ML IV PRN (23:00)
[2021-06-26] VITALS (9 sets, daily range): BP systolic 127–166; BP diastolic 62–73
[2021-06-26] MEDS: SODIUM CHLORIDE 0.9% 1000ML 1,000 ML IV SCH ×4 (02:07→23:27)
[2021-06-26] MEDS: PIPERACILLIN/TAZOBACTAM 3.375 GM in SODIUM CHLORIDE 0.9% 50ML 50 ML IV SCH ×2 (02:07→05:55)
[2021-06-26] MEDS: ONDANSETRON HCL INJ 2MG/ML 2ML 2 MG/ML VIAL IV PRN ×2 (02:23→10:15)
[2021-06-26] MEDS: Morphine 4mg Syringe 4 MG/ML INJ IV PRN ×2 (02:23→10:15)
[2021-06-26] MEDS: INSULIN REGULAR, HUMAN 100 UNIT/1 ML SQ SCH ×4 (07:30→20:15)
[2021-06-26 07:42] LABS: BASOPHILS % 0.2 % (0.0-1.0); EOSINOPHILS % 0.2 % (0.0-6.0); HEMATOCRIT 35.9 % (34.2-44.1); HEMOGLOBIN 11.9 g/dL (12.0-16.0); LYMPHOCYTES # (AUTO) 1.6 (1.0-3.2); LYMPHOCYTES % 18.5 % (18.0-39.1); MEAN CORPUSCULAR HEMOGLOBIN 30.2 pg (28-32); MEAN CORPUSCULAR HGB CONC 33.1 g/dL (31-35); MEAN CORPUSCULAR VOLUME 91.1 fL (81-99); MONOCYTES # (AUTO) 0.7 (0.2-0.8); NEUTROPHILS # (AUTO) 6.5 (2.1-6.9); NEUTROPHILS % 72.8 % (38.7-80.0); PLATELET COUNT 241 x10e3/uL (140-360); RED BLOOD COUNT 3.94 x10e6/uL (3.6-5.1); RED CELL DISTRIBUTION WIDTH 13.3 % (11.7-14.4)
[2021-06-26 08:01] LABS: ALBUMIN 3.4 g/dL (3.5-5.0); ALBUMIN/GLOBULIN RATIO 1.1 (0.8-2.0); ANION GAP 14.5 mmol/L (8-16); CALCIUM 8.8 mg/dL (8.4-10.2); CREATININE, SERUM 0.85 mg/dL (0.57-1.11); POTASSIUM 3.5 mmol/L (3.5-5.1)
[2021-06-26] MEDS ORDERED: CRESTOR10 MG PO (09:25)
[2021-06-27] VITALS (8 sets, daily range): BP systolic 136–152; BP diastolic 66–93
[2021-06-27] MEDS: ONDANSETRON HCL INJ 2MG/ML 2ML 2 MG/ML VIAL IV PRN (03:48)
[2021-06-27] MEDS: Morphine 4mg Syringe 4 MG/ML INJ IV PRN (03:48)
[2021-06-27] MEDS: SODIUM CHLORIDE 0.9% 1000ML 1,000 ML IV SCH ×3 (06:49→23:33)
[2021-06-27] MEDS: INSULIN REGULAR, HUMAN 100 UNIT/1 ML SQ SCH ×3 (07:30→16:30)
[2021-06-27] MEDS: CEFTRIAXONE 2 GM in SODIUM CHLORIDE 0.9% 100 ML IV SCH (08:58)
[2021-06-27] MEDS ORDERED: INSULIN REGULAR, HUMAN 100 UNIT/1 ML SQ SCH (22:00)
[2021-06-28] VITALS (8 sets, daily range): BP systolic 140–172; BP diastolic 75–96
[2021-06-28] MEDS: ONDANSETRON HCL INJ 2MG/ML 2ML 2 MG/ML VIAL IV PRN (01:23)
[2021-06-28] MEDS: Morphine 4mg Syringe 4 MG/ML INJ IV PRN (01:36)
[2021-06-28] MEDS: INSULIN REGULAR, HUMAN 100 UNIT/1 ML SQ SCH ×4 (06:00→18:00)
[2021-06-28] MEDS: SODIUM CHLORIDE 0.9% 1000ML 1,000 ML IV SCH ×3 (07:00→20:22)
[2021-06-28] MEDS: CEFTRIAXONE 2 GM in SODIUM CHLORIDE 0.9% 100 ML IV SCH (08:46)
[2021-06-28 09:56] LABS: BASOPHILS % 0.2 % (0.0-1.0); EOSINOPHILS # (AUTO) 0.1 (0.0-0.4); EOSINOPHILS % 0.7 % (0.0-6.0); HEMATOCRIT 33.9 % (34.2-44.1); HEMOGLOBIN 11.3 g/dL (12.0-16.0); LYMPHOCYTES # (AUTO) 1.3 (1.0-3.2); LYMPHOCYTES % 14.4 % (18.0-39.1); MEAN CORPUSCULAR HEMOGLOBIN 29.9 pg (28-32); MEAN CORPUSCULAR HGB CONC 33.3 g/dL (31-35); MEAN CORPUSCULAR VOLUME 89.7 fL (81-99); MONOCYTES # (AUTO) 0.7 (0.2-0.8); NEUTROPHILS # (AUTO) 6.8 (2.1-6.9); PLATELET COUNT 201 x10e3/uL (140-360); RED BLOOD COUNT 3.78 x10e6/uL (3.6-5.1); RED CELL DISTRIBUTION WIDTH 13.2 % (11.7-14.4)
[2021-06-28 10:25] LABS: ALBUMIN 2.9 g/dL (3.5-5.0); ANION GAP 14.3 mmol/L (8-16); CALCIUM 8.1 mg/dL (8.4-10.2); CREATININE, SERUM 0.73 mg/dL (0.57-1.11); POTASSIUM 3.3 mmol/L (3.5-5.1)
[2021-06-29] VITALS (7 sets, daily range): BP systolic 148–182; BP diastolic 63–87
[2021-06-29] MEDS: SODIUM CHLORIDE 0.9% 1000ML 1,000 ML IV SCH ×3 (03:44→20:14)
[2021-06-29] MEDS: INSULIN REGULAR, HUMAN 100 UNIT/1 ML SQ SCH ×4 (06:00→18:00)
[2021-06-29] MEDS: CEFTRIAXONE 2 GM in SODIUM CHLORIDE 0.9% 100 ML IV SCH (09:00)
[2021-06-30] VITALS (8 sets, daily range): BP systolic 115–149; BP diastolic 58–96
[2021-06-30] MEDS: INSULIN REGULAR, HUMAN 100 UNIT/1 ML SQ SCH ×5 (05:28→20:45)
[2021-06-30] MEDS: SODIUM CHLORIDE 0.9% 1000ML 1,000 ML IV SCH ×3 (07:00→23:35)
[2021-06-30] MEDS: CEFTRIAXONE 2 GM in SODIUM CHLORIDE 0.9% 100 ML IV SCH (09:00)
[2021-06-30] MEDS ORDERED: INSULIN REGULAR, HUMAN 100 UNIT/1 ML SQ SCH (17:00)
[2021-07-01] VITALS (8 sets, daily range): BP systolic 137–164; BP diastolic 60–82
[2021-07-01] MEDS: SODIUM CHLORIDE 0.9% 1000ML 1,000 ML IV SCH ×3 (06:05→23:43)
[2021-07-01] MEDS: INSULIN REGULAR, HUMAN 100 UNIT/1 ML SQ SCH ×4 (07:30→20:05)
[2021-07-01] MEDS ORDERED: TRAMADOL HCL 50 MG TAB PO PRN (08:30)
[2021-07-01] MEDS: CEFTRIAXONE 2 GM in SODIUM CHLORIDE 0.9% 100 ML IV SCH (09:00)
[2021-07-02 00:17] VITALS: BP 161/74
[2021-07-02 04:13] VITALS: BP 149/72
[2021-07-02] MEDS: INSULIN REGULAR, HUMAN 100 UNIT/1 ML SQ SCH ×3 (07:30→16:30)
[2021-07-02 08:30] VITALS: BP 152/66
[2021-07-02] MEDS: SODIUM CHLORIDE 0.9% 1000ML 1,000 ML IV SCH ×2 (08:39→15:00)
[2021-07-02] MEDS: CEFTRIAXONE 2 GM in SODIUM CHLORIDE 0.9% 100 ML IV SCH (08:39)
[2021-07-02 08:51] VITALS: BP 152/66
[2021-07-02 11:16] LABS: BASOPHILS % 0.4 % (0.0-1.0); EOSINOPHILS # (AUTO) 0.2 (0.0-0.4); EOSINOPHILS % 2.5 % (0.0-6.0); HEMATOCRIT 32.1 % (34.2-44.1); HEMOGLOBIN 10.6 g/dL (12.0-16.0); LYMPHOCYTES # (AUTO) 1.3 (1.0-3.2); LYMPHOCYTES % 18.5 % (18.0-39.1); MEAN CORPUSCULAR HEMOGLOBIN 29.7 pg (28-32); MEAN CORPUSCULAR VOLUME 89.9 fL (81-99); MONOCYTES # (AUTO) 0.7 (0.2-0.8); MONOCYTES % 10.2 % (4.4-11.3); NEUTROPHILS # (AUTO) 4.6 (2.1-6.9); NEUTROPHILS % 67.5 % (38.7-80.0); PLATELET COUNT 220 x10e3/uL (140-360); RED BLOOD COUNT 3.57 x10e6/uL (3.6-5.1); RED CELL DISTRIBUTION WIDTH 13.5 % (11.7-14.4)
[2021-07-02 11:33] VITALS: BP 138/75
[2021-07-02 11:38] LABS: ANION GAP 11.1 mmol/L (8-16); CREATININE, SERUM 0.74 mg/dL (0.57-1.11); POTASSIUM 3.1 mmol/L (3.5-5.1)
[2021-07-02 16:07] VITALS: BP 171/78
[2021-07-02] MEDS ORDERED: K-DUR10 MEQ PO (18:53)
[2021-07-02] MEDS ORDERED: AMLODIPINE BESYL5 MG PO (18:54)
[2021-07-02] MEDS ORDERED: POTASSIUM CHLORIDE 20 MEQ TAB CR PO ONE (19:15)
[2021-07-02] MEDS ORDERED: HYDRALAZINE HCL 20 MG/ML VIAL IV ONE (19:15)
== END 2021-07-02 19:52 | disposition home or self-care (01) | DRG 388 ==
LOC: ER 19:18 → ERHOLD 23:06 → MED/SURG2 06-26 01:48
PROVIDERS: ADMIT Internal Medicine; ATTEND Internal Medicine
PROC: 0D9670Z Drainage of Stomach with Drainage Device, Via Natural or Artificial Opening (ICD-10-PCS; principal; 2021-06-26)
DX: K56.51 Intestinal adhesions [bands], with partial obstruction (principal); U07.1 COVID-19; I10 Essential (primary) hypertension; E11.9 Type 2 diabetes mellitus without complications; K21.9 Gastro-esophageal reflux disease without esophagitis; E78.5 Hyperlipidemia, unspecified; E66.9 Obesity, unspecified; Z90.49 Acquired absence of other specified parts of digestive tract; Z98.890 Other specified postprocedural states; Z68.33 Body mass index [BMI] 33.0-33.9, adult
CPT/HCPCS: 36415; 74018; 74177; 80048; 80053; 81001; 82150; 82550; 82553; 82948; 83690; 84484; 85025; 85610; 85730; 93005; 94799; 96360; 96361; 99251; 99284; J0360; J0696; J2270; J2405; J2543; J7030; J7050; Q9967; U0002

== ENCOUNTER 2021-09-11 08:42 | Inpatient (IN) | payer MEDICARE, OTHER ==
[~2021-09-11] VITALS: Ht 165.1 cm; Wt 91.6 kg
[~2021-09-11 08:42] MED LIST changes: +CRESTOR10 MG PO; +K-DUR10 MEQ PO
[2021-09-11] MEDS ORDERED: Morphine 2mg Syringe 2 MG/ML SYR IV STA (08:56)
[2021-09-11] MEDS ORDERED: ONDANSETRON HCL INJ 2MG/ML 2ML 2 MG/ML VIAL IV STA (08:56)
[2021-09-11] MEDS ORDERED: SODIUM CHLORIDE 0.9% 500ML 500 ML IV ONE (09:00)
[2021-09-11 09:17] LABS: BASOPHILS % 0.3 % (0.0-1.0); EOSINOPHILS % 0.3 % (0.0-6.0); HEMOGLOBIN 11.9 g/dL (12.0-16.0); LYMPHOCYTES # (AUTO) 0.9 (1.0-3.2); LYMPHOCYTES % 14.2 % (18.0-39.1); MEAN CORPUSCULAR HEMOGLOBIN 29.7 pg (28-32); MEAN CORPUSCULAR HGB CONC 32.2 g/dL (31-35); MEAN CORPUSCULAR VOLUME 92.3 fL (81-99); MONOCYTES # (AUTO) 0.5 (0.2-0.8); MONOCYTES % 7.2 % (4.4-11.3); NEUTROPHILS % 77.7 % (38.7-80.0); PLATELET COUNT 236 x10e3/uL (140-360); RED BLOOD COUNT 4.01 x10e6/uL (3.6-5.1); RED CELL DISTRIBUTION WIDTH 13.2 % (11.7-14.4)
[2021-09-11 09:34] LABS: INR 1.02; PROTHROMBIN TIME 14.3 seconds (11.9-14.5)
[2021-09-11 09:35] LABS: PARTIAL THROMBOPLASTIN TIME 28.1 seconds (23.8-35.5)
[2021-09-11 09:37] LABS: ALANINE AMINOTRANSFERASE 17 IU/L (0-55); ALBUMIN 3.9 g/dL (3.5-5.0); ALBUMIN/GLOBULIN RATIO 1.1 (0.8-2.0); ALKALINE PHOSPHATASE 75 IU/L (40-150); ANION GAP 15.1 mmol/L (8-16); BLOOD UREA NITROGEN 17 mg/dL (7-26); BUN/CREATININE RATIO 20 (6-25); CALCIUM 9.2 mg/dL (8.4-10.2); CARBON DIOXIDE 24 mmol/L (22-29); CHLORIDE 106 mmol/L (98-107); CREATINE KINASE 48 IU/L (29-168); CREATININE, SERUM 0.87 mg/dL (0.57-1.11); EST GLOMERULAR FILTRATION RATE 62 ML/MIN (60-); GLUCOSE 143 mg/dL (74-118); LIPASE 25 U/L (8-78); POTASSIUM 4.1 mmol/L (3.5-5.1); SODIUM 141 mmol/L (136-145)
[2021-09-11] MEDS ORDERED: DIATRIZOATE MEGL/DIATRIZOA SOD 30 ML BTL PO ONE (09:49)
[2021-09-11] MEDS ORDERED: IOPAMIDOL 370 MG/ML 100 ML INFUS..BTL INJ ONE (10:21)
[2021-09-11] MEDS ORDERED: BENZOCAINE/TETRACAINE/BUTAMBEN AERO SPRAY 56 GM CAN TOP ONE (12:45)
[2021-09-11] MEDS ORDERED: Morphine 4mg Syringe 4 MG/ML INJ IV ONE (12:45)
[2021-09-11] MEDS ORDERED: ONDANSETRON HCL INJ 2MG/ML 2ML 2 MG/ML VIAL IV NR (12:45)
[2021-09-11] MEDS ORDERED: PROMETHAZINE HCL (IM) 25 MG/ML VIAL IM ONE (12:53)
[2021-09-11 13:05] LABS: CLARITY,URINE CLOUDY (CLEAR); COLOR,URINE YELLOW (YELLOW); LEUKOCYTE ESTERASE ,URINE NEGATIVE (NEGATIVE); NITRITE,URINE NEGATIVE (NEGATIVE); PROTEIN,URINE DIPSTICK NEGATIVE (NEGATIVE)
[2021-09-11 13:06] LABS: BACTERIA,URINE FEW /HPF; EPITHELIAL CELLS,URINE FEW /LPF; KETONES,URINE NEGATIVE (NEGATIVE); URINE UROBILINOGEN 0.2 mg/dL (0.2 - 1); WBC,URINE (MAN) 0-5 /HPF (0-5)
[2021-09-11] MEDS ORDERED: LOSARTAN POTASS50 MG PO (15:04)
[2021-09-11] MEDS: SODIUM CHLORIDE 0.9% 1000ML 1,000 ML IV SCH (15:08)
[2021-09-11 15:34] VITALS: BP 121/79
[2021-09-11 15:40] VITALS: BP 121/79
[2021-09-11] MEDS ORDERED: DOXAZOSIN MESYLA2 MG PO (15:47)
[2021-09-11] MEDS: ONDANSETRON HCL INJ 2MG/ML 2ML 2 MG/ML VIAL IV PRN (17:13)
[2021-09-11] MEDS: Morphine 2mg Syringe 2 MG/ML SYR IV PRN ×2 (17:13→21:34)
[2021-09-11 20:00] VITALS: BP 158/83
[2021-09-12] VITALS (9 sets, daily range): BP systolic 125–142; BP diastolic 57–88
[2021-09-12] MEDS: SODIUM CHLORIDE 0.9% 1000ML 1,000 ML IV SCH ×2 (00:13→15:57)
[2021-09-12] MEDS: Morphine 2mg Syringe 2 MG/ML SYR IV PRN ×4 (03:00→22:29)
[2021-09-12] MEDS ORDERED: DEXTROSE 50% SYRINGE 50 ML IV PRN (03:15)
[2021-09-12 06:32] LABS: BASOPHILS % 0.3 % (0.0-1.0); EOSINOPHILS # (AUTO) 0.1 (0.0-0.4); EOSINOPHILS % 0.7 % (0.0-6.0); HEMATOCRIT 35.3 % (34.2-44.1); HEMOGLOBIN 11.3 g/dL (12.0-16.0); LYMPHOCYTES # (AUTO) 1.4 (1.0-3.2); LYMPHOCYTES % 20.5 % (18.0-39.1); MEAN CORPUSCULAR HEMOGLOBIN 29.4 pg (28-32); MEAN CORPUSCULAR VOLUME 91.7 fL (81-99); MONOCYTES # (AUTO) 0.8 (0.2-0.8); MONOCYTES % 11.7 % (4.4-11.3); NEUTROPHILS # (AUTO) 4.6 (2.1-6.9); NEUTROPHILS % 66.5 % (38.7-80.0); PLATELET COUNT 225 x10e3/uL (140-360); RED BLOOD COUNT 3.85 x10e6/uL (3.6-5.1); RED CELL DISTRIBUTION WIDTH 13.5 % (11.7-14.4)
[2021-09-12 06:52] LABS: ALBUMIN 3.4 g/dL (3.5-5.0); ALBUMIN/GLOBULIN RATIO 1.1 (0.8-2.0); ANION GAP 12.7 mmol/L (8-16); CALCIUM 8.5 mg/dL (8.4-10.2); CREATININE, SERUM 0.82 mg/dL (0.57-1.11); POTASSIUM 3.7 mmol/L (3.5-5.1)
[2021-09-12] MEDS: INSULIN LISPRO 100 UNIT/1 ML 3ML VIAL SQ SCH ×4 (07:30→21:00)
[2021-09-12] MEDS: ONDANSETRON HCL INJ 2MG/ML 2ML 2 MG/ML VIAL IV PRN ×2 (10:25→15:05)
[2021-09-12] MEDS ORDERED: Morphine 2mg Syringe 2 MG/ML SYR IV ONE (18:00)
[2021-09-12 18:45] LABS: BASOPHILS % 0.3 % (0.0-1.0); EOSINOPHILS # (AUTO) 0.1 (0.0-0.4); EOSINOPHILS % 0.9 % (0.0-6.0); HEMATOCRIT 36.6 % (34.2-44.1); HEMOGLOBIN 11.4 g/dL (12.0-16.0); LYMPHOCYTES # (AUTO) 1.4 (1.0-3.2); LYMPHOCYTES % 18.3 % (18.0-39.1); MEAN CORPUSCULAR HEMOGLOBIN 29.6 pg (28-32); MEAN CORPUSCULAR HGB CONC 31.1 g/dL (31-35); MEAN CORPUSCULAR VOLUME 95.1 fL (81-99); MONOCYTES # (AUTO) 0.8 (0.2-0.8); MONOCYTES % 10.3 % (4.4-11.3); NEUTROPHILS # (AUTO) 5.3 (2.1-6.9); NEUTROPHILS % 69.9 % (38.7-80.0); PLATELET COUNT 214 x10e3/uL (140-360); RED BLOOD COUNT 3.85 x10e6/uL (3.6-5.1); RED CELL DISTRIBUTION WIDTH 13.6 % (11.7-14.4)
[2021-09-12 19:44] LABS: ANION GAP 16.2 mmol/L (8-16); CALCIUM 8.3 mg/dL (8.4-10.2); CREATININE, SERUM 0.83 mg/dL (0.57-1.11); POTASSIUM 4.2 mmol/L (3.5-5.1)
[2021-09-13] VITALS (9 sets, daily range): BP systolic 126–160; BP diastolic 69–78
[2021-09-13] MEDS: SODIUM CHLORIDE 0.9% 1000ML 1,000 ML IV SCH ×3 (05:56→23:15)
[2021-09-13] MEDS ORDERED: ENOXAPARIN SODIUM INJ 100 MG/ML SYR SC SCH (07:00)
[2021-09-13 07:23] LABS: BASOPHILS % 0.4 % (0.0-1.0); EOSINOPHILS # (AUTO) 0.1 (0.0-0.4); EOSINOPHILS % 0.9 % (0.0-6.0); HEMOGLOBIN 10.7 g/dL (12.0-16.0); LYMPHOCYTES # (AUTO) 1.5 (1.0-3.2); LYMPHOCYTES % 19.7 % (18.0-39.1); MEAN CORPUSCULAR HEMOGLOBIN 29.6 pg (28-32); MEAN CORPUSCULAR HGB CONC 31.5 g/dL (31-35); MEAN CORPUSCULAR VOLUME 93.9 fL (81-99); MONOCYTES # (AUTO) 0.8 (0.2-0.8); MONOCYTES % 9.7 % (4.4-11.3); NEUTROPHILS # (AUTO) 5.3 (2.1-6.9); PLATELET COUNT 209 x10e3/uL (140-360); RED BLOOD COUNT 3.62 x10e6/uL (3.6-5.1); RED CELL DISTRIBUTION WIDTH 13.5 % (11.7-14.4)
[2021-09-13] MEDS: INSULIN LISPRO 100 UNIT/1 ML 3ML VIAL SQ SCH ×4 (07:30→21:00)
[2021-09-13 07:45] LABS: ANION GAP 11.9 mmol/L (8-16); CALCIUM 7.9 mg/dL (8.4-10.2); CREATININE, SERUM 0.79 mg/dL (0.57-1.11); POTASSIUM 3.9 mmol/L (3.5-5.1)
[2021-09-13] MEDS: ENOXAPARIN SOD INJ 40 MG/0.4 ML SYR SC SCH (09:10)
[2021-09-14] VITALS (8 sets, daily range): BP systolic 130–155; BP diastolic 65–79
[2021-09-14] MEDS: ENOXAPARIN SOD INJ 40 MG/0.4 ML SYR SC SCH (06:30)
[2021-09-14] MEDS ORDERED: ENOXAPARIN SOD INJ 40 MG/0.4 ML SYR SC SCH (07:00)
[2021-09-14] MEDS: INSULIN LISPRO 100 UNIT/1 ML 3ML VIAL SQ SCH ×4 (07:30→20:53)
[2021-09-14] MEDS: SODIUM CHLORIDE 0.9% 1000ML 1,000 ML IV SCH ×2 (10:52→20:53)
[2021-09-15 00:01] VITALS: BP 155/49
[2021-09-15 04:00] VITALS: BP 140/67
[2021-09-15] MEDS: SODIUM CHLORIDE 0.9% 1000ML 1,000 ML IV SCH ×2 (06:45→17:21)
[2021-09-15] MEDS: ENOXAPARIN SOD INJ 40 MG/0.4 ML SYR SC SCH (07:20)
[2021-09-15] MEDS: INSULIN LISPRO 100 UNIT/1 ML 3ML VIAL SQ SCH ×3 (07:30→16:30)
[2021-09-15 08:00] VITALS: BP 143/70
[2021-09-15 09:14] VITALS: BP 143/70
[2021-09-15 12:09] VITALS: BP 128/67
[2021-09-15] MEDS ORDERED: COLACE100 MG PO (15:30)
[2021-09-15] MEDS ORDERED: ONDANSETRON HCL 4 MG ORAL DISINTEGRATING TAB PO PRN (15:45)
[2021-09-15 16:00] VITALS: BP 130/63
== END 2021-09-15 17:59 | disposition home or self-care (01) | DRG 394 ==
LOC: ER 09:00 → ERHOLD 12:43 → MED/SURG 13:58
PROVIDERS: ADMIT Internal Medicine; ATTEND Internal Medicine
DX: K43.6 Other and unspecified ventral hernia with obstruction, without gangrene (principal); K56.51 Intestinal adhesions [bands], with partial obstruction; I10 Essential (primary) hypertension; E11.9 Type 2 diabetes mellitus without complications; E78.5 Hyperlipidemia, unspecified; K21.9 Gastro-esophageal reflux disease without esophagitis; Z90.49 Acquired absence of other specified parts of digestive tract; Z20.822 Contact with and (suspected) exposure to COVID-19; K63.89 Other specified diseases of intestine; Z79.84 Long term (current) use of oral hypoglycemic drugs
CPT/HCPCS: 36415; 71045; 74018; 74019; 74177; 80048; 80053; 81001; 82550; 82553; 83690; 83735; 84484; 85025; 85610; 85730; 87086; 87186; 93005; 99284; J1650; J2270; J2405; J2550; J7030; J7040; Q9967; U0002

== ENCOUNTER → 2024-04-10 | Outpatient (REF) | payer MEDICARE, OTHER ==
[~2024-04-10] MED LIST changes: +COLACE100 MG PO; +DOXAZOSIN MESYLA2 MG PO; +LINZESS145 MCG; +LOSARTAN POTASS50 MG PO; +VITAMIN C500 M6 PO
== END ==
LOC: RAD 07:52
PROVIDERS: ATTEND Internal Medicine
DX: M47.812 Spondylosis without myelopathy or radiculopathy, cervical region (principal)
CPT/HCPCS: 72050

== ENCOUNTER → 2025-02-14 | Outpatient (REF) | payer MEDICARE, OTHER | LOC: MRI 13:48 | PROVIDERS: ATTEND Internal Medicine | DX: H81.13 Benign paroxysmal vertigo, bilateral (principal) | CPT/HCPCS: 70551 ==